=== PATIENT | female | born 1995 | race Caucasian/White ===

== ENCOUNTER 2018-12-21 13:05 | Emergency (ER) | payer MEDICAID ==
[~2018-12-21] VITALS: Ht 160 cm; Wt 144.6 kg
[~2018-12-21 13:05] MED LIST: ARIP5TAB8 PO; LEVO125T4 PO; SERT100T12 PO; TRAZ150T79 PO
[2018-12-21] MEDS ORDERED: IBUP-2071 PO (13:25)
[2018-12-21] MEDS ORDERED: ACETAMINOPHEN 500 MG TABLET PO ONE (15:30)
[2018-12-21] MEDS ORDERED: LEVO75 PO (15:31)
[2018-12-21] MEDS ORDERED: TRAZ-220 PO (15:31)
[2018-12-21 16:04] LABS: BASOPHILS % (AUTO) 0.4 % (0.0-2.0); EOSINOPHILS % (AUTO) 3.8 % (1.0-6.0); HEMOGLOBIN 12.4 g/dL (12.0-16.0); LYMPHOCYTES # (AUTO) 2.1 K/uL (1.0-4.8); LYMPHOCYTES % (AUTO) 29.6 % (22.0-44.0); MEAN CORPUSCULAR HEMOGLOBIN 26.4 pg (26.0-34.0); MEAN CORPUSCULAR HGB CONC 31.8 G/dL (31.0-37.0); MEAN CORPUSCULAR VOLUME 83 fL (80-100); MONOCYTES # (AUTO) 0.5 K/uL (0.1-1.0); MONOCYTES % (AUTO) 6.9 % (2.0-9.0); NEUTROPHILS # (AUTO) 4.2 K/uL (1.8-7.7); NEUTROPHILS % (AUTO) 59.3 % (40.0-70.0); PLATELET COUNT (AUTO) 198 K/uL (150-450); RED BLOOD CELL COUNT(AUTO) 4.69 MIL/uL (4.00-5.20); RED CELL DISTRIBUTION WIDTH 21.1 % (11.5-14.5)
[2018-12-21 16:22] LABS: ANION GAP 14 mmol/L (8-16); CALCIUM, TOTAL 9.6 mg/dL (8.8-10.5); CARBON DIOXIDE 20 mmol/L (22-29); CHLORIDE 100 mmol/L (98-107); CREATININE 0.59 mg/dL (0.60-1.30); GLOMERULAR FILTR. RATE CALC > 60 mL/min (>60); GLUCOSE,RANDOM 80 mg/dL (70-110); POTASSIUM 3.7 mmol/L (3.5-5.1); SODIUM SERUM 134 mmol/L (136-145); UREA NITROGEN, BLOOD 6 mg/dL (7-18)
[2018-12-21 16:48] LABS: ALANINE AMINOTRANSFERASE 71 U/L (12-78); ALBUMIN 3.7 g/dL (3.4-5.0); ALKALINE PHOSPHATASE 57 U/L (46-116); ASPARTATE AMINOTRANSFERASE 37 U/L (15-37); BILIRUBIN,TOTAL 0.3 mg/dL (0.1-1.0); HCG,QUANTITATIVE 80632 mIU/mL (0-6); LIPASE 70 U/L (73-393); THYROID STIMULATING HORMONE 36.97 uIU/mL (0.36-3.74); TOTAL PROTEIN, SERUM 7.6 g/dL (6.4-8.2)
[2018-12-21 16:59] LABS: APPEARANCE,URINE CLOUDY (CLEAR); GLUCOSE, URINE (UA) NEGATIVE (NEGATIVE); KETONES,URINE 40 mg/dL (NEGATIVE); LEUKOCYTE ESTERASE ,URINE NEGATIVE (NEGATIVE); NITRATE,URINE NEGATIVE (NEGATIVE); OCCULT BLOOD,URINE NEGATIVE (NEGATIVE); PROTEIN,URINE NEGATIVE (NEGATIVE)
[2018-12-21 17:00] LABS: BILIRUBIN,URINE PRELIM. POSITIVE (NEGATIVE)
[2018-12-21 17:03] LABS: RBC,URINE 0-2 /HPF (0-2); WBC,URINE 0-2 /HPF (0-5)
[2018-12-21 17:04] LABS: BACTERIA,URINE Few /HPF (None Seen); SQUAMOUS EPITHELIAL CELL,UR Many /LPF (None Seen)
[2018-12-21 17:45] VITALS: BP 130/75
[2018-12-21 17:50] LABS: FREE T4 (FREE THYROXINE) 0.72 ng/dL (0.76-1.46)
== END 2018-12-21 18:10 | disposition home or self-care (01) ==
LOC: EMS 13:16
DX: O99.281 Endocrine, nutritional and metabolic diseases complicating pregnancy, first trimester (principal); O99.511 Diseases of the respiratory system complicating pregnancy, first trimester; O99.341 Other mental disorders complicating pregnancy, first trimester; O26.891 Other specified pregnancy related conditions, first trimester; E03.9 Hypothyroidism, unspecified; R10.31 Right lower quadrant pain; F31.9 Bipolar disorder, unspecified; M54.6 Pain in thoracic spine; Z3A.13 13 weeks gestation of pregnancy
CPT/HCPCS: 76770; 76801; 76817; 84439; 84443; 84481; 86901

== ENCOUNTER 2019-03-12 19:37 | Observation (INO) | payer MEDICAID, OTHER ==
[~2019-03-12] VITALS: Ht 160 cm; Wt 146.5 kg
[~2019-03-12 19:37] MED LIST changes: +IBUP-2071 PO; -LEVO125T4 PO; +LEVO75 PO; +TRAZ-220 PO; -TRAZ150T79 PO
[2019-03-12] MEDS: RINGERS SOLUTION,LACTATED 1,000 ML IV SCH (20:08)
[2019-03-12 20:16] LABS: BASOPHILS % (AUTO) 0.5 % (0.0-2.0); EOSINOPHILS % (AUTO) 2.3 % (1.0-6.0); HEMATOCRIT 33.7 % (36-46); HEMOGLOBIN 11.4 g/dL (12.0-16.0); LYMPHOCYTES # (AUTO) 2.2 K/uL (1.0-4.8); LYMPHOCYTES % (AUTO) 19.4 % (22.0-44.0); MEAN CORPUSCULAR HEMOGLOBIN 29.8 pg (26.0-34.0); MEAN CORPUSCULAR HGB CONC 33.8 G/dL (31.0-37.0); MEAN CORPUSCULAR VOLUME 88 fL (80-100); MONOCYTES # (AUTO) 0.8 K/uL (0.1-1.0); MONOCYTES % (AUTO) 6.9 % (2.0-9.0); NEUTROPHILS # (AUTO) 8.2 K/uL (1.8-7.7); NEUTROPHILS % (AUTO) 70.9 % (40.0-70.0); PLATELET COUNT (AUTO) 191 K/uL (150-450); RED BLOOD CELL COUNT(AUTO) 3.82 MIL/uL (4.00-5.20); RED CELL DISTRIBUTION WIDTH 14.9 % (11.5-14.5)
[2019-03-12 20:21] VITALS: BP 171/81
[2019-03-12 20:42] LABS: ANION GAP 13 mmol/L (8-16); CALCIUM, TOTAL 8.9 mg/dL (8.8-10.5); CARBON DIOXIDE 20 mmol/L (22-29); CHLORIDE 106 mmol/L (98-107); CREATININE 0.56 mg/dL (0.60-1.30); GLOMERULAR FILTR. RATE CALC > 60 mL/min (>60); GLUCOSE,RANDOM 101 mg/dL (70-110); POTASSIUM 3.5 mmol/L (3.5-5.1); SODIUM SERUM 139 mmol/L (136-145); UREA NITROGEN, BLOOD 9 mg/dL (7-18)
[2019-03-12 20:48] LABS: ALANINE AMINOTRANSFERASE 25 U/L (12-78); ALBUMIN 2.7 g/dL (3.4-5.0); ALKALINE PHOSPHATASE 72 U/L (46-116); ASPARTATE AMINOTRANSFERASE 16 U/L (15-37); BILIRUBIN,TOTAL 0.2 mg/dL (0.1-1.0); TOTAL PROTEIN, SERUM 6.5 g/dL (6.4-8.2)
[2019-03-12] MEDS ORDERED: LEVO200T10 PO (21:03)
[2019-03-12] MEDS ORDERED: prenatal vitamin PO (21:04)
[2019-03-12 21:09] LABS: APPEARANCE,URINE CLEAR (CLEAR); BILIRUBIN,URINE NEGATIVE (NEGATIVE); GLUCOSE, URINE (UA) NEGATIVE (NEGATIVE); KETONES,URINE TRACE mg/dL (NEGATIVE); LEUKOCYTE ESTERASE ,URINE NEGATIVE (NEGATIVE); NITRATE,URINE NEGATIVE (NEGATIVE); OCCULT BLOOD,URINE SMALL (NEGATIVE); PH,URINE 5.5 (5.0-8.0); PROTEIN,URINE NEGATIVE (NEGATIVE); UROBILINOGEN,URINE 0.2 mg/dL (<=1.0)
[2019-03-12 21:15] LABS: BACTERIA,URINE Moderate /HPF (None Seen)
[2019-03-12 21:16] LABS: MUCUS,URINE Few LPF (None Seen); SQUAMOUS EPITHELIAL CELL,UR Few /LPF (None Seen)
[2019-03-12] MEDS ORDERED: MORPHINE SULFATE 2 MG/ML SYRINGE IVP PRN (23:00)
[2019-03-12] MEDS ORDERED: ONDANSETRON HCL 4 MG/2 ML VIAL IVP PRN (23:00)
[2019-03-13] MEDS: FentaNYL CITRATE-PF 100 MCG/2 ML VIAL IVP PRN ×3 (00:44→01:08)
== END 2019-03-13 02:20 | disposition home or self-care (01) ==
LOC: 4S 19:49
PROVIDERS: ADMIT Obstetrics & Gynecology; ATTEND Obstetrics & Gynecology
DX: O26.892 Other specified pregnancy related conditions, second trimester (principal); M54.5 Low back pain; R10.9 Unspecified abdominal pain; O24.419 Gestational diabetes mellitus in pregnancy, unspecified control; F32.9 Major depressive disorder, single episode, unspecified; Z3A.24 24 weeks gestation of pregnancy; Z87.440 Personal history of urinary (tract) infections
CPT/HCPCS: 36415; 76700; 76805; 80053; 80307 ×8; 81001; 85025; 87086; 96374; 96375 ×2; G0378 ×2; J2270; J2405; J3010; J7120

== ENCOUNTER 2019-03-13 02:19 | Inpatient (IN) | payer MEDICAID, OTHER ==
[~2019-03-13] VITALS: Ht 160 cm; Wt 146.8 kg
[~2019-03-13 02:19] MED LIST changes: +LEVO200T10 PO; +prenatal vitamin PO
[2019-03-13] MEDS ORDERED: CeFAZolin 1 GM/DEXTROSE 50 ML IV ONE (04:30)
[2019-03-13] MEDS ORDERED: MORPHINE SULFATE 4 MG/ML SYRINGE IVP ONE (04:30)
[2019-03-13] MEDS ORDERED: SODIUM CHLORIDE 0.9% 1,000 ML IV ONE (04:30)
[2019-03-13 04:50] VITALS: BP 140/80
[2019-03-13] MEDS ORDERED: 0.9% SODIUM CHLORIDE 10 ML SYRINGE IVP PRN (05:00)
[2019-03-13] MEDS ORDERED: ACETAMINOPHEN 325 MG TABLET PO PRN (05:00)
[2019-03-13] MEDS: LEVOTHYROXINE SODIUM 200 MCG TABLET PO SCH (08:11)
[2019-03-13] MEDS: RINGERS SOLUTION,LACTATED 1,000 ML IV SCH ×2 (08:12→16:40)
[2019-03-13] MEDS ORDERED: MORPHINE SULFATE 4 MG/ML SYRINGE IVP PRN (08:30)
[2019-03-13] MEDS ORDERED: FentaNYL CITRATE-PF 100 MCG/2 ML VIAL IVP PRN (10:15)
[2019-03-13] MEDS: HYDROmorphone 2 MG/ML SYRINGE IVP PRN ×4 (13:07→22:13)
[2019-03-13] MEDS: CeFAZolin 1 GM/DEXTROSE 50 ML IV SCH ×2 (13:09→22:13)
[2019-03-13 14:57] LABS: GLUCOMETER DEV NAME(LOC) 4S.; GLUCOSE,POINT OF CARE 78 MG/DL (70-110)
[2019-03-13] MEDS: ONDANSETRON HCL 4 MG/2 ML VIAL IVP PRN (16:56)
[2019-03-13] MEDS: ACETAMINOPHEN 1000 MG/ISO-OSM 100 ML IV SCH (23:21)
[2019-03-14] MEDS: RINGERS SOLUTION,LACTATED 1,000 ML IV SCH ×2 (01:59→11:08)
[2019-03-14] MEDS: HYDROmorphone 2 MG/ML SYRINGE IVP PRN ×5 (03:50→15:33)
[2019-03-14] MEDS: CeFAZolin 1 GM/DEXTROSE 50 ML IV SCH (06:32)
[2019-03-14] MEDS: LEVOTHYROXINE SODIUM 200 MCG TABLET PO SCH (06:32)
[2019-03-14] MEDS: ACETAMINOPHEN 1000 MG/ISO-OSM 100 ML IV SCH (08:03)
[2019-03-14] MEDS: ONDANSETRON HCL 4 MG/2 ML VIAL IVP PRN ×2 (08:12→12:39)
[2019-03-14 10:00] LABS: GLUCOMETER DEV NAME(LOC) 4S.; GLUCOSE,POINT OF CARE 123 MG/DL (70-110)
[2019-03-14] MEDS ORDERED: OxyCODONE HCL/ACETAMINOPHEN 5-325 MG TABLET PO PRN (17:15)
[2019-03-14] MEDS ORDERED: CYCLOBENZAPRINE HCL 10 MG TABLET PO PRN (17:15)
[2019-03-14] MEDS ORDERED: MEPERIDINE 50 MG/ML IM ONE (18:30)
[2019-03-14] MEDS ORDERED: MEPERIDINE-PF 25 MG/ML VIAL IM ONE (18:45)
== END 2019-03-14 20:58 | disposition short-term general hospital (02) | DRG 566 ==
LOC: EMS 02:19 → OBSVTOIN 05:15 → 4S 05:15 → INTOOBSV 05:15
PROVIDERS: ADMIT Obstetrics & Gynecology; ATTEND Obstetrics & Gynecology
DX: O23.02 Infections of kidney in pregnancy, second trimester (principal); K80.20 Calculus of gallbladder without cholecystitis without obstruction; O99.212 Obesity complicating pregnancy, second trimester; N13.6 Pyonephrosis; O99.282 Endocrine, nutritional and metabolic diseases complicating pregnancy, second trimester; O99.342 Other mental disorders complicating pregnancy, second trimester; O99.612 Diseases of the digestive system complicating pregnancy, second trimester; Z3A.25 25 weeks gestation of pregnancy
CPT/HCPCS: 96365; 96375; 96376; J0131; J0690; J1170; J2175; J2270; J2405; J3010; J7030; J7120

== ENCOUNTER 2021-06-29 21:16 | Emergency (ER) | payer OTHER ==
[~2021-06-29] VITALS: Ht 160 cm; Wt 158.6 kg
[~2021-06-29 21:16] MED LIST changes: -ARIP5TAB8 PO; -IBUP-2071 PO; -SERT100T12 PO; -TRAZ-220 PO
[2021-06-29 21:58] LABS: BASOPHILS % (AUTO) 0.7 % (0.0-2.0); EOSINOPHILS % (AUTO) 1.8 % (1.0-6.0); HEMATOCRIT 36.3 % (36-46); HEMOGLOBIN 11.5 g/dL (12.0-16.0); LYMPHOCYTES # (AUTO) 0.9 K/uL (1.0-4.8); LYMPHOCYTES % (AUTO) 13.9 % (22.0-44.0); MEAN CORPUSCULAR HEMOGLOBIN 22.5 pg (26.0-34.0); MEAN CORPUSCULAR HGB CONC 31.8 G/dL (31.0-37.0); MEAN CORPUSCULAR VOLUME 71 fL (80-100); MONOCYTES # (AUTO) 0.2 K/uL (0.1-1.0); MONOCYTES % (AUTO) 2.7 % (2.0-9.0); NEUTROPHILS # (AUTO) 5.4 K/uL (1.8-7.7); NEUTROPHILS % (AUTO) 80.9 % (40.0-70.0); PLATELET COUNT (AUTO) 290 K/uL (150-450); RED BLOOD CELL COUNT(AUTO) 5.11 MIL/uL (4.00-5.20); RED CELL DISTRIBUTION WIDTH 17.8 % (11.5-14.5)
[2021-06-29 22:11] LABS: ANION GAP 10 mmol/L (8-16); CALCIUM, TOTAL 9.8 mg/dL (8.8-10.5); CARBON DIOXIDE 24 mmol/L (22-29); CHLORIDE 104 mmol/L (98-107); CREATININE 0.75 mg/dL (0.60-1.30); GLOMERULAR FILTR. RATE CALC > 60 mL/min (>60); GLUCOSE,RANDOM 127 mg/dL (70-110); POTASSIUM 3.9 mmol/L (3.5-5.1); SODIUM SERUM 138 mmol/L (136-145); UREA NITROGEN, BLOOD 10 mg/dL (7-18)
[2021-06-29 22:18] LABS: ALANINE AMINOTRANSFERASE 31 U/L (12-78); ALBUMIN 4.4 g/dL (3.4-5.0); ALKALINE PHOSPHATASE 83 U/L (46-116); ASPARTATE AMINOTRANSFERASE 18 U/L (15-37); BILIRUBIN,TOTAL 0.3 mg/dL (0.1-1.0); TOTAL PROTEIN, SERUM 8.7 g/dL (6.4-8.2)
[2021-06-29 22:19] LABS: PLATELET MORPHOLOGY COMMENT GIANT PLTS PRESENT
[2021-06-29 22:20] LABS: B-TYPE NATRIURETIC PEPTIDE 6 pg/mL (0-100)
[2021-06-29 23:30] VITALS: BP 146/100
== END 2021-06-30 00:20 | disposition home or self-care (01) ==
LOC: EMS 21:20
DX: J45.901 Unspecified asthma with (acute) exacerbation (principal); F31.9 Bipolar disorder, unspecified; E03.9 Hypothyroidism, unspecified
CPT/HCPCS: 71045; 80053; 83880; 84484; 84703; 85025; 93005; 99285; 36415-L1; 36415-TC